=== PATIENT | male | born 1965 | race Caucasian/White ===

== ENCOUNTER 2020-12-06 11:14 | Day surgery (SDC) | payer BC ==
[2020-12-06] MEDS ORDERED: CEFAZOLIN/SWI 1gm 0 GM/0 ML SYR ONE (11:50)
[2020-12-06] MEDS ORDERED: Ringers Lactate 1,000 ML IV ONE (11:50)
--- NOTE | 2020-12-06 12:07 | RAD REPORT ---
EXAM DESCRIPTION: RAD - Chest Pa And Lat (2 Views) - 12/06/2020 11:50 am CLINICAL HISTORY: STAT, PACU ISOLATION ROOM 2 COMPARISON: Chest Pa And Lat (2 Views) dated 03/18/2018; CHEST SINGLE VIEW dated 08/28/2014; CHEST SING LE VIEW dated 07/16/2014; CHEST SINGLE VIEW dated 05/23/2014 FINDINGS: Lines: None. Lungs: No evidence of edema or pneumonia. Pleural: No significant pleural effusions or pneumothorax. Cardiac: The heart size is within normal limits. Bones: No acute fractures. Other: IMPRESSION: No acute cardiopulmonary disease.
[2020-12-06 12:14] LABS: BUN Blood Urea Nitrogen 21 mg/dL (7-18); Bicarbonate 29 mmol/L (21-32); Glucose Level 100 mg/dL (74-106); Potassium 4.5 mmol/L (3.5-5.1); Sodium Level 142 mmol/L (136-145)
[2020-12-06] MEDS ORDERED: FENTANYL CITR 100 MCG/2 ML ONE (12:17)
[2020-12-06] MEDS ORDERED: propofoL 200 MG/20 ML VIAL IV ONE (12:17)
[2020-12-06] MEDS ORDERED: dexAMETHasone 10 MG/ML VIAL ONE (12:17)
[2020-12-06 12:18] LABS: Absolute Lymphocytes (CBC) 1.2 K/uL (0.7-4.9); Basophils % 1.3 % (0-1.3); Hematocrit 42.2 % (39.6-49.0); Lymphocytes % 28.2 % (15.3-44.8); MPV 9.1 fL (7.6-11.3); RBC Red Blood Cell Count 4.85 M/uL (4.33-5.43)
[2020-12-06] MEDS ORDERED: LIDOCAINE 2% MPF 5 ML VIAL ONE ×2 (12:18→13:52)
[2020-12-06] MEDS ORDERED: KETOROLAC 30 MG/ML INJ ONE (12:18)
[2020-12-06] MEDS ORDERED: ONDANSETRON 4 MG/2 ML VIAL ONE (12:18)
[2020-12-06] MEDS ORDERED: MIDAZOLAM HCL 2 MG/2 ML INJ ONE (12:18)
[2020-12-06 12:42] VITALS: O2SAT 100
[2020-12-06] MEDS ORDERED: BUPIVACAINE 0.5% PF 10 ML VIAL ONE (13:53)
[2020-12-06] MEDS: CIPROFLOXACIN 400mg IV 400 MG/200 ML BAG IV ONE ×2 (13:56→13:57)
[2020-12-06] MEDS: BUPIVACAINE 0.5% PF 10 ML VIAL ONE ×2 (13:57→14:14)
--- NOTE | 2020-12-06 14:30 | P.BOP ---
Preoperative diagnosis: right third finger mass Postoperative diagnosis: same Primary procedure: Excisional biopsy right third finger mass with frozen 1.5 x 1.5cm Estimated blood loss: minimal Specimen: mass Anesthesia: General Complications: None Transferred to: Recovery Room Condition: Good
[2020-12-06 15:34] VITALS: BP 147/86; TEMP 97.1
== END 2020-12-06 15:29 | disposition home or self-care (01) ==
LOC: OR 11:14
PROVIDERS: ATTEND Surgery
PROC: 0JBJ0ZZ Excision of Right Hand Subcutaneous Tissue and Fascia, Open Approach (ICD-10-PCS; principal; 2020-12-06 13:45)
DX: R22.31 Localized swelling, mass and lump, right upper limb (principal); Z20.822 Contact with and (suspected) exposure to COVID-19
CPT/HCPCS: 93005; 85025; 80048; 36415; 88331; 88304; 71046; 11422; U0003; J2704; J2250; J3010; J1100; J7120; J2405; J0744; 88305; J0690